=== PATIENT | female | born 1960 | race Caucasian/White ===

== ENCOUNTER 2016-11-22 17:33 | Emergency (ER) | payer SELFPAY ==
--- NOTE | 2016-11-22 20:27 | ER Document Report ---
ED Medical Screen (RME) - General Chief Complaint: Leg Pain Stated Complaint: LEG PAIN Time Seen by Provider: 11/22/16 20:09 Mode of Arrival: Wheelchair Information source: Patient Notes: This is a 55-year-old female with no significant past medical history who presents pain and swelling to the right lower extremity. She states that the symptoms have been present for the past for 5 days. She denies any fevers or chills. She states that the swelling has become so severe that she cannot walk. She does state that she was prescribed "fluid retention pills" sometime last year but that she does not have the financial resources to continue that prescription and she has not taken the medicine in several months. She does not currently have a primary care physician. She denies chest pain or shortness of breath. No history of similar symptoms in the past. No history of blood clots. I have greeted and performed a rapid initial assessment of this patient. A comprehensive ED assessment and evaluation of the patient, analysis of test results and completion of the medical decision making process will be conducted by additional ED providers. TRAVEL OUTSIDE OF THE [place] IN LAST 30 DAYS: No - Related Data Allergies/Adverse Reactions: No Known Allergies Allergy (Verified 04/02/14 11:33) Past Medical History Renal/ Medical History: Denies: Hx Peritoneal Dialysis Past Surgical History: Reports: Hx Section - x3, Hx Tubal Ligation - Immunizations Hx Diphtheria, Pertussis, Tetanus Vaccination: No Physical Exam - General General appearance: Appears well In distress: None - Extremities Notes: RLE is significantly edematous as compared to LLE. Patient has tight pants on and I am unable to roll up her pant leg to examine more that just her foot here in triage. Her right foot is very erythematous and warm to touch, with 3-4+ pitting edema.
[2016-11-22 20:52] LABS: ABSOLUTE BASOPHILS # (AUTO) 0.1 10^3/uL (0.0-0.2); ABSOLUTE EOSINOPHILS # (AUTO) 0.4 10^3/uL (0.0-0.6); ABSOLUTE LYMPHOCYTES (AUTO) 2.8 10^3/uL (0.5-4.7); ABSOLUTE MONOCYTES (AUTO) 1.7 10^3/uL (0.1-1.4); ABSOLUTE NEUT (AUTO) 10.9 10^3/uL (1.7-8.2); BASOPHILS % (AUTO) 0.6 % (0-2); EOSINOPHILS % (AUTO) 2.3 % (0-6); HEMATOCRIT 43.2 % (36.0-47.0); HEMOGLOBIN 14.4 g/dL (12.0-15.5); LYMPHOCYTES % (AUTO) 17.5 % (13-45); MEAN CORPUSCULAR HEMOGLOBIN 34.3 pg (27.0-33.4); MEAN CORPUSCULAR HGB CONC 33.3 g/dL (32.0-36.0); MEAN CORPUSCULAR VOLUME 103 fl (80-97); MONOCYTES % (AUTO) 10.6 % (3-13); RED CELL DISTRIBUTION WIDTH 13.6 % (11.5-14.0); WHITE BLOOD COUNT 15.8 10^3/uL (4.0-10.5)
[2016-11-22 21:09] LABS: ALANINE AMINOTRANSFERASE 22 U/L (9-52); ALBUMIN 3.4 g/dL (3.5-5.0); ALKALINE PHOSPHATASE 206 U/L (38-126); ANION GAP 12 (5-19); ASPARTATE AMINO TRANSFERASE 27 U/L (14-36); BILIRUBIN,DIRECT 0.6 mg/dL (0.0-0.4); BILIRUBIN,TOTAL 1.2 mg/dL (0.2-1.3); BLOOD UREA NITROGEN 14 mg/dL (7-20); CALCIUM 9.3 mg/dL (8.4-10.2); CARBON DIOXIDE 28 mmol/L (22-30); CHLORIDE 100 mmol/L (98-107); CREATININE RESULT 0.61 mg/dL (0.52-1.25); GLUCOSE 101 mg/dL (75-110); SODIUM 140.2 mmol/L (137-145)
--- NOTE | 2016-11-22 22:06 | RADIOLOGY REPORT (SQ) ---
EXAM DESCRIPTION: VENOUS UNILATERAL LOWER COMPLETED DATE/TIME: 11/22/2016 10:00 pm REASON FOR STUDY: RLE swelling, r/o DVT COMPARISON: None. TECHNIQUE: Dynamic and static brown scale and color images acquired of the right leg venous system. S elected spectral images acquired with additional compression and augmentation maneuvers. The contrala teral common femoral vein and saphenofemoral junction were also imaged. Images stored on PACS. LIMITATIONS: None. FINDINGS: COMMON FEMORAL: Normal phasicity, compression and augmentation. No visualized echogenic ma terial on brown scale. No defects on color images. FEMORAL: Normal compression and augmentation. No visualized echogenic material on brown scale. No defe cts on color images. POPLITEAL: Normal compression, augmentation. No visualized echogenic material on brown scale. No defec ts on color images. CALF VESSELS: Normal compression, augmentation. No visualized echogenic material on brown scale. No de fects on color images. GSV and SSV: Normal compression, augmentation. No visualized echogenic material on brown scale. No def ects on color images. ANY DEEP VENOUS INSUFFICIENCY: Not evaluated. ANY EVIDENCE OF POPLITEAL CYST: No. OTHER: No other significant finding. CONTRALATERAL COMMON FEMORAL VEIN AND SAPHENOFEMORAL JUNCTION: Normal phasicity, compression and augmentation. No visualized echogenic material on brown scale. No de fects on color images. IMPRESSION: NO EVIDENCE DVT OR SVT IN THE RIGHT LEG. TECHNICAL DOCUMENTATION: JOB ID: [id number] [employer]- All Rights Reserved
[2016-11-22] MEDS ORDERED: SULFAMETHOXAZOLE/TRIMETHOPRIM 800-160 MG TABLET PO ONE (22:42)
--- NOTE | 2016-11-22 22:50 | ER Document Report ---
ED Extremity Problem, Lower - General Chief Complaint: Leg Pain Stated Complaint: LEG PAIN Time Seen by Provider: 11/22/16 20:09 Mode of Arrival: Wheelchair Notes: The patient is a 55-year-old female, PMHx chronic peripheral edema, who presents with increasing redness over the back of her right leg open sore. She said that she has had several months of right-sided edema and used to take a water pill, but she was unable to afford it. She tried using compression stockings and elevation with some relief of her symptoms. She denies shortness of breath, chest pain, nausea, vomiting, leg injury, back pain or hip pain TRAVEL OUTSIDE OF THE [place] IN LAST 30 DAYS: No - Related Data Allergies/Adverse Reactions: No Known Allergies Allergy (Verified 04/02/14 11:33) Past Medical History - General Information source: Patient - Social History Smoking Status: Unknown if Ever Smoked Family History: Reviewed & Not Pertinent Patient has suicidal ideation: No Patient has homicidal ideation: No Renal/ Medical History: Denies: Hx Peritoneal Dialysis Past Surgical History: Reports: Hx Section - x3, Hx Tubal Ligation - Immunizations Hx Diphtheria, Pertussis, Tetanus Vaccination: No Review of Systems - Review of Systems Notes: REVIEW OF SYSTEMS: CONSTITUTIONAL: -fevers, -chills EENT: -eye pain, -difficulty swallowing, -nasal congestion CARDIOVASCULAR:-chest pain, -syncope. RESPIRATORY: -cough, -SOB GASTROINTESTINAL: -abdominal pain, -nausea, -vomiting, -diarrhea GENITOURINARY: -dysuria, -hematuria MUSCULOSKELETAL: +right leg swelling, -back pain, -neck pain SKIN: +right leg wound HEMATOLOGIC: -easy bruising or bleeding. LYMPHATIC: -swollen, enlarged glands. NEUROLOGICAL: -altered mental status or loss of consciousness, -headache, - neurologic symptoms PSYCHIATRIC: -anxiety, -depression. ALL OTHER SYSTEMS REVIEWED AND NEGATIVE. Physical Exam - Notes Notes: PHYSICAL EXAMINATION: GENERAL: Well-appearing, well-nourished and in no acute distress. HEAD: Atraumatic, normocephalic. EYES: Pupils equal round and reactive to light, extraocular movements intact, sclera anicteric, conjunctiva are normal. ENT: nares patent, oropharynx clear without exudates. Moist mucous membranes. NECK: Normal range of motion, supple without lymphadenopathy LUNGS: Breath sounds clear to auscultation bilaterally and equal. No wheezes rales or rhonchi. HEART: Regular rate and rhythm without murmurs ABDOMEN: Soft, nontender, normoactive bowel sounds. No guarding, no rebound. No masses appreciated. EXTREMITIES: 4+ pitting edema in RLE, strong distal pulses, small open wound on posterior calf with surrounding erythema, normal range of motion. 3+ edema in LLE. No cyanosis. NEUROLOGICAL: Cranial nerves grossly intact. Normal speech, normal gait. Normal sensory and motor exams. PSYCH: Normal mood, normal affect. Course - Re-evaluation Re-evalutation: Pt with chronic peripheral edema and new cellulitis and small wound. No DVT on US. Pt does not have insurance, so will begin Bactrim DS due to being on the $4 list. Given strict return precautions and patient understands. - Laboratory Result Diagrams: 11/22/16 20:40 11/22/16 20:40 Laboratory results interpreted by me: 11/22/16 11/22/16 20:40 20:40 WBC 15.8 H MCV 103 H MCH 34.3 H Absolute Neutrophils 10.9 H Absolute Monocytes 1.7 H Direct Bilirubin 0.6 H Alkaline Phosphatase 206 H Albumin 3.4 L - Diagnostic Test Radiology reviewed: Image reviewed, Reports reviewed Radiology results interpreted by me: MIKO US: No DVT or SVT. Discharge - Discharge Clinical Impression: Cellulitis of leg, right Condition: Stable Disposition: HOME, SELF-CARE Additional Instructions: MRSA CELLULITIS: You have an infection of your skin and underlying soft tissues called cellulitis. This is due to bacteria, which can enter through any break in the skin, or even through an irritated hair follicle. Untreated, cellulitis will usually worsen and may form an abscess which requires draining. Although many bacterial organisms can cause cellulitis and abscess formations, the most likely bacteria is Methicillin-Resistant Staph Aureus, or MRSA for short. Antibiotics are required. Usually, warm packs or warm soaks, and elevation of the infected area are recommended. You should start getting better within 24 to 36 hours. Most infections respond quickly to the right medication. Follow-up care is important, however, to check for abscess (boil) formation, unsuspected foreign body, or resistant infection. If you develop fever, chills, or if the area of infection is becoming rapidly more swollen or painful, call the doctor at once. ANTIBIOTIC THERAPY: You have been given an antibiotic prescription. It's important that you take all the medication, unless instructed otherwise by your physician. Failure to complete the entire course can result in relapse of your condition. Common side effects of antibiotics include nausea, intestinal cramping, or diarrhea. Women may develop vaginal yeast infections, and babies can get yeast (thrush) in the mouth following the use of antibiotics. Contact your physician if you develop significant side effects from this medication. Allergy to this antibiotic can result in hives, wheezing, faintness, or itching. If symptoms of allergy occur, stop the medication and call the doctor. TRIMETHOPRIM-SULFA: You have been given a prescription for trimethoprim-sulfa (TMS, Septra, Bactrim). This is a combination antibiotic of the sulfa class, often used for urinary tract infections, middle ear infections, bronchitis, shigella intestinal infection, and Pneumocystis pneumonia. TMS is usually well-tolerated. Occasional side effects include nausea and decreased appetite. Septra is not recommended for infants less than two months of age. Do not take this medication if you have experienced severe side effects or allergy to sulfa medicine. You should stop this medicine at once and contact your physician if you develop any rash, joint pain, shortness of breath, bruising, or jaundice ( yellow color in the skin), or if you develop any other new or unusual symptoms. ORAL NARCOTIC MEDICATION: You have been given a prescription for pain control. This medication is a narcotic. It's best taken with food, as nausea can result if taken on an empty stomach. Don't operate machinery or drive within six hours of taking this medication. Do not combine this medicine with alcohol, or with any medication which can cause sedation (such as cold tablets or sleeping pills) unless you get permission from the physician. Narcotics tend to cause constipation. If possible, drink plenty of fluids and eat a diet high in fiber and fruits. Please be aware that prescription narcotics also have the potential for abuse. People become addicted to these medications because of the general sense of wellbeing that they induce. This feeling along with a significant reduction in tension, anxiety, and aggression provides a stimulating seductive quality to these drugs. Once your pain is under control, we encourage you to discard your unused narcotics. FOLLOW-UP CARE: If you have been referred to a physician for follow-up care, call the physician s office for an appointment as you were instructed or within the next two days. If you experience worsening or a significant change in your symptoms, notify the physician immediately or return to the Emergency Department at any time for re-evaluation. Prescriptions: Hydrocodone/Acetaminophen [[place] 5-325 mg Tablet] 1 tab PO Q6H PRN #12 tablet PRN Reason: Sulfamethoxazole/Trimethoprim [Bactrim 400-80 mg Tablet] 2 each PO Q12H 10 Days [facility] - Follow up as needed
[2016-11-22] MEDS ORDERED: HYDROCODONE/ACETAMINOPHEN 5-325 MG TABLET PO ONE (22:52)
[2016-11-22] MEDS ORDERED: IBUPROFEN 600 MG TABLET PO ONE (22:52)
[2016-11-22] MEDS ORDERED: HYDROCODONE/ACETAMINOPHEN 5-325 MG 6 TAB/DSPK PO PRN (23:42)
[2016-11-23 01:20] VITALS: BP 133/84
== END 2016-11-23 00:30 | disposition home or self-care (01) ==
LOC: ER 17:33
DX: S81.801A Unspecified open wound, right lower leg, initial encounter (principal); L03.115 Cellulitis of right lower limb; X58.XXXA Exposure to other specified factors, initial encounter; R60.0 Localized edema; T50.996A Underdosing of other drugs, medicaments and biological substances, initial encounter; Z91.120 Patient's intentional underdosing of medication regimen due to financial hardship; Z91.14 Patient's other noncompliance with medication regimen
CPT/HCPCS: 36415; 80053; 85025; 87040; 93971; 99284

== ENCOUNTER 2016-12-19 16:23 | Inpatient (IN) | payer SELFPAY ==
--- NOTE | 2016-12-19 17:06 | ER Document Report ---
ED Medical Screen (RME) - General Chief Complaint: R leg swelling, drainage Stated Complaint: LEG SWELLING Time Seen by Provider: 12/19/16 16:58 Notes: Patient is a 56-year-old female, past medical history chronic peripheral edema, presents with worsening redness and now an open wound on her right posterior calf. She was seen in the emergency room about a month ago and started on Bactrim for cellulitis. She said that her redness improved initially, but is now worse and a open hole is present in her leg. She was unable to follow-up with wound care clinic due to lack of transportation PE: erythema and tenderness over posterior right calf, 3 cm open wound over right posterior calf I have greeted and performed a rapid initial assessment of this patient. A comprehensive ED assessment and evaluation of the patient, analysis of test results and completion of the medical decision making process will be conducted by additional ED providers. TRAVEL OUTSIDE OF THE [place] IN LAST 30 DAYS: No - Related Data Allergies/Adverse Reactions: ampicillin Adverse Reaction (Verified 12/19/16 17:03) Past Medical History Renal/ Medical History: Denies: Hx Peritoneal Dialysis Past Surgical History: Reports: Hx Section - x3, Hx Tubal Ligation - Immunizations Hx Diphtheria, Pertussis, Tetanus Vaccination: No
[2016-12-19] MEDS ORDERED: KETOROLAC TROMETHAMINE INJ/PF 30 MG/1 ML SDV IV ONE (17:14)
[2016-12-19 17:47] LABS: ABSOLUTE BASOPHILS # (AUTO) 0.2 10^3/uL (0.0-0.2); ABSOLUTE EOSINOPHILS # (AUTO) 0.4 10^3/uL (0.0-0.6); ABSOLUTE LYMPHOCYTES (AUTO) 2.2 10^3/uL (0.5-4.7); ABSOLUTE NEUT (AUTO) 3.1 10^3/uL (1.7-8.2); BASOPHILS % (AUTO) 2.3 % (0-2); EOSINOPHILS % (AUTO) 6.3 % (0-6); HEMATOCRIT 38.3 % (36.0-47.0); HEMOGLOBIN 12.7 g/dL (12.0-15.5); HGB HCT DIFFERENCE -0.2; LYMPHOCYTES % (AUTO) 31.3 % (13-45); MEAN CORPUSCULAR HEMOGLOBIN 34.1 pg (27.0-33.4); MEAN CORPUSCULAR HGB CONC 33.1 g/dL (32.0-36.0); MEAN CORPUSCULAR VOLUME 103 fl (80-97); MONOCYTES % (AUTO) 14.8 % (3-13); RED BLOOD COUNT 3.72 10^6/uL (3.72-5.28); SEGMENTED NEUTROPHILS % (AUTO) 45.3 % (42-78); WHITE BLOOD COUNT 6.9 10^3/uL (4.0-10.5)
[2016-12-19] MEDS ORDERED: VANCOMYCIN HCL INJ 1000 MG VIAL IV ONE (17:53)
[2016-12-19] MEDS ORDERED: LEVOFLOXACIN 750 MG TABLET PO ONE (17:54)
[2016-12-19 18:03] LABS: ALANINE AMINOTRANSFERASE 23 U/L (9-52); ALBUMIN 3.2 g/dL (3.5-5.0); ALKALINE PHOSPHATASE 136 U/L (38-126); ANION GAP 12 (5-19); ASPARTATE AMINO TRANSFERASE 33 U/L (14-36); BILIRUBIN,DIRECT 0.3 mg/dL (0.0-0.4); BILIRUBIN,TOTAL 0.8 mg/dL (0.2-1.3); BLOOD UREA NITROGEN 9 mg/dL (7-20); CALCIUM 8.6 mg/dL (8.4-10.2); CARBON DIOXIDE 26 mmol/L (22-30); CHLORIDE 106 mmol/L (98-107); CREATINE KINASE 44 U/L (30-135); GLUCOSE 132 mg/dL (75-110); POTASSIUM 3.3 mmol/L (3.6-5.0); SODIUM 143.5 mmol/L (137-145); TOTAL PROTEIN 7.5 g/dL (6.3-8.2)
--- NOTE | 2016-12-19 18:06 | ER Document Report ---
ED General - General Chief Complaint: Wound Infection Stated Complaint: LEG SWELLING Time Seen by Provider: 12/19/16 16:58 Notes: Presents with increased redness swelling and pain of the left lower extremity, constant, worsening, for about a month but worse for a couple of days and now associated with an open wound. She is not sure how long the wound is been there because she cannot get down that low secondary to immobility issues. She been having chills as well. She was seen a month ago and given Bactrim for cellulitis without did not help. She claims she is not a diabetic but appears to have long-standing leg edema. She does not have transportation and is not currently in primary care. TRAVEL OUTSIDE OF THE [place] IN LAST 30 DAYS: No - Related Data Allergies/Adverse Reactions: ampicillin Adverse Reaction (Verified 12/19/16 17:03) Past Medical History - Social History Smoking Status: Unknown if Ever Smoked Family History: Reviewed & Not Pertinent Renal/ Medical History: Denies: Hx Peritoneal Dialysis Past Surgical History: Reports: Hx Section - x3, Hx Tubal Ligation - Immunizations Hx Diphtheria, Pertussis, Tetanus Vaccination: No Review of Systems - Review of Systems Notes: GEN: Denies fever, chills, weight loss ENT: Denies sore throat, nasal discharge, ear pain EYES: Denies blurry vision, eye pain, discharge CV: Denies chest pain, palpitations, edema RESP: Denies cough, shortness of breath, wheezing GI: Denies abdominal pain, nausea, vomiting, diarrhea MSK: Bilateral leg edema, left leg redness and swelling with wound, SKIN: Denies rash, skin lesions LYMPH: Denies swollen glands/lymph nodes NEURO: Denies headache, focal weakness or numbness, dizziness PSYCH: Denies depression, suicidal or homicidal ideation Physical Exam - Vital signs Vitals: Temp Pulse Resp BP Pulse Ox 98.4 F 110 H 16 142/84 H 100 12/19/16 16:45 12/19/16 16:45 12/19/16 16:45 12/19/16 16:45 12/19/16 16:45 - Notes Notes: General: No acute distress, well-nourished Head: Atraumatic, normocephalic ENT: Mouth normal, oropharynx moist, no exudates or tonsillar enlargement Eyes: Conjunctiva normal, pupils equal, lids normal Neck: No JVD, supple, no guarding CVS: Normal rate, regular rhythm, no murmurs Resp: No resp distress, equal and normal breath sounds bilaterally GI: Nondistended, soft, no tenderness to palpation, no rebound or guarding Ext: There are significant bilateral symmetric chronic leg edema, elephant skin like appearance of legs. Large area of tender erythema on the left posterior leg with a central punched out ulcerative lesion draining pus approximately 3 x 3 cm. This does not probe to bone, but does probe quite deeply. Skin: No rash, warm Lymphatic: No lymphadeopathy noted Neuro: Awake, alert. Face symmetric. Course - Re-evaluation Re-evalutation: 12/19/16 17:57 Acute redness and wound on top of chronic edema concerning for cellulitis. There is purulent drainage from the ulcer but there is no drainable abscess on my exam. Must rule out osteomyelitis. We will get x-rays, cultures, and start the patient on vancomycin and Levaquin for presumed osteomyelitis. Ordered ESR CRP. Will admit to hospitalist. 12/19/16 18:40 Show osteomyelitis. There is no elevated white count. CRP is up. I spoke with Dr. Pérez from surgery will evaluate the patient as an inpatient, and then I admitted the patient [address] [facility] to the night doctor, Dr. Coley. He agreed with the plan as above. - Vital Signs Vital signs: Temp Pulse Resp BP Pulse Ox 98.4 F 110 H 16 142/84 H 100 12/19/16 16:45 12/19/16 16:45 12/19/16 16:45 12/19/16 16:45 12/19/16 17:18 - Laboratory Result Diagrams: 12/19/16 17:25 12/19/16 17:25 Laboratory results interpreted by me: 12/19/16 12/19/16 12/19/16 17:25 17:25 17:25 MCV 103 H MCH 34.1 H Monocytes % 14.8 H Eosinophils % 6.3 H Basophils % 2.3 H ESR 71 H Potassium 3.3 L Glucose 132 H Alkaline Phosphatase 136 H C-Reactive Protein Albumin 3.2 L 12/19/16 17:25 MCV MCH Monocytes % Eosinophils % Basophils % ESR Potassium Glucose Alkaline Phosphatase C-Reactive Protein 19.0 H Albumin - Diagnostic Test Radiology reviewed: Image reviewed, Reports reviewed Discharge - Discharge Admitting Provider: Hospitalist Unit Admitted: Telemetry
--- NOTE | 2016-12-19 18:30 | RADIOLOGY REPORT (SQ) ---
EXAM DESCRIPTION: TIBIA FIBULA RIGHT COMPLETED DATE/TIME: 12/19/2016 6:17 pm REASON FOR STUDY: LEG ULCER r/o OSTEO COMPARISON: None. NUMBER OF VIEWS: Two views. TECHNIQUE: Two radiographic images acquired of the right tibia and fibula to include the knee and an kle in at least one projection. LIMITATIONS: None. FINDINGS: MINERALIZATION: Normal. BONES: No acute fracture or dislocation. No worrisome bone lesions. SOFT TISSUES: Soft tissue ulceration seen along the posterior aspect of the calf. No ulceration is n ot appear to extend to the cortex of bone. There is significant swelling of the soft tissues of the lower extremity. OTHER: No other significant finding. IMPRESSION: No acute fracture, dislocation, or destructive bony lesion identified. Soft tissue ulce ration seen posterior aspect of the distal right lower leg without extension to the cortical surface. TECHNICAL DOCUMENTATION: JOB ID: [id number] [employer]- All Rights Reserved
[2016-12-19] MEDS ORDERED: OXYCODONE HCL IR 5 MG TABLET PO ONE (19:04)
--- NOTE | 2016-12-19 19:16 | RADIOLOGY REPORT (SQ) ---
EXAM DESCRIPTION: CT RT LOWER EXTREMITY WITH COMPLETED DATE/TIME: 12/19/2016 6:59 pm REASON FOR STUDY: Abscess fistula? COMPARISON: None. TECHNIQUE: Axial imaging performed through the right tibia and fibula with reformatted coronal and s agittal imaging windowed for bone and soft tissues. Images saved to PACS. 3D IMAGING: Were 3D images as MIP, SSD, or volume rendering performed at the work station? No. All CT scanners at this facility use dose modulation, iterative reconstruction, and/or weight based d osing when appropriate to reduce radiation dose to as low as reasonably achievable (ALARA). [facility]: Dose Right [facility]: CareDose [facility]: Dose Right [facility]: Teradose 4D [facility]: [employer] LIMITATIONS: None. RADIATION DOSE: Up-to-date CT equipment and radiation dose reduction techniques were employed. CTDIv ol: 4.1 mGy. DLP: 158 mGy-cm. mGy. FINDINGS: SOFT TISSUES: There is significant edema throughout to the subcutaneous soft tissues. No defined fluid collection is seen within the soft tissues to suggest underlying abscess. The defect i s noted in the right posteromedial aspect of the right lower extremity and only extends into the supe rficial soft tissues. There is no evidence of a sinus tract extending down into the deeper musculatu re or to the bony cortex. Numerous calcifications are noted anteriorly in the soft tissues. BONES: No acute fracture. No dislocation. No destructive bony lesions. MINERALIZATION: Normal. OTHER: No other significant finding. IMPRESSION: No acute fracture, dislocation, or destructive bony lesions are identified. Soft tissue ulceration noted along the posteromedial aspect of the right lower leg extent seen into the a superf icial subcutaneous soft tissues. There is significant edema seen within the soft tissues of the righ t lower extremity. The defect is not appear to extend into the deeper musculature or bones. No absc ess is identified within the right lower leg. TECHNICAL DOCUMENTATION: JOB ID: [id number] Quality ID # [id number]: Final reports with documentation of one or more dose reduction techniques (e.g., Au tomated exposure control, adjustment of the mA and/or kV according to patient size, use of iterative reconstruction technique) 2010 [employer]- All Rights Reserved
[2016-12-19] MEDS ORDERED: IPRATROPIUM/ALBUTEROL 0.5-2.5 MG/3 ML AMPUL NEB PRN (19:37)
[2016-12-19] MEDS ORDERED: MAG HYDROX/AL HYDROX/SIMETH SUSP 30 ML UDCUP PO PRN (19:37)
[2016-12-19] MEDS ORDERED: HYDRALAZINE HCL INJ/PF 20 MG/1 ML SDV IV PRN (19:37)
[2016-12-19] MEDS ORDERED: ACETAMINOPHEN 325 MG TABLET PO PRN (19:37)
[2016-12-19] MEDS ORDERED: ZOLPIDEM TARTRATE 5 MG TABLET PO PRN (19:37)
[2016-12-19] MEDS ORDERED: KETOROLAC TROMETHAMINE INJ/PF 30 MG/1 ML SDV IV PRN (19:37)
[2016-12-19] MEDS ORDERED: VANCOMYCIN HCL 0 MG in DEXTROSE 5%-WATER 250 ML IV NR (19:45)
--- NOTE | 2016-12-19 20:55 | PDOC CONSULTATION ---
Consultation Consult Date: 12/19/16 Attending physician:: REMY WRIGHT Consult reason:: Wound right lower extremity associated with cellulitis History of Present Illness Admission Date/PCP: 12/19/16 18:47 Patient complains of: Pain right lower extremity with drainage from wound 1 month duration History of Present Illness: HUBER SAMAYOA is a 56 year old female that presented to the emergency room for the second time in 1 month with, edema, and now erythema and drainage from a wound in her right lower extremity. Denies any trauma to the area but stated approximately a month ago she began to develop "bumps" in her right lower extremity. At the bumps were extremely pruritic. She stated that soon after beginning to scratch the one area on the posterior medial aspect of her right lower extremity she noticed that a small ulcer developed. She did not pay much attention to it until she began to become somewhat painful and she developed a burning sensation in that extremity. She subsequently presented to the emergency room in late October with a superficial ulcer and minimal surrounding erythema. She stated that she was started on an antibiotic, she thinks it was Bactrim, she attempted to elevate her leg by placing heat on the leg when she was supine. That over the course of this month wound has become worse. Approximately 2 days ago she began having a burning sensation in her right lower extremity. She noticed that the area of the erythema had increased substantially from just a few days prior to this event. Positive for fever and chills denied any sweats. She denies a history of trauma or DVT in her lower extremities are late 40s has been suffering from edema in her lower extremities bilaterally. At her primary care physician tells her that she "retains fluid." Denies any history of intermittent claudication states that she only feels a heaviness in the legs when she ambulates. Past Medical History Cardiac Medical History: Reports: Hypertension Pulmonary Medical History: Reports: None EENT Medical History: Reports: None Neurological Medical History: Reports: None Endocrine Medical History: Reports: None Renal/ Medical History: Reports: None Malignancy Medical History: Reports: None GI Medical History: Reports: None Musculoskeltal Medical History: Reports: Arthritis, Other - Peripheral edema lower extremities bilaterally Skin Medical History: Reports: Other - Cellulitis right lower extremity Traumatic Medical History: Reports: None Hematology: Reports: None Infectious Medical History: Reports: Methicillin-Resistant Staph Aureus Past Surgical History Past Surgical History: Reports: Section - x3, Tubal Ligation, Other - section 3 Social History Smoking Status: Former Smoker Cigarettes Packs Per Day: 1.5 Number of Years Smokin Last Time Smoked: In her mid 30s Frequency of Alcohol Use: Rare Hx Recreational Drug Use: No Family History Family History: Reviewed & Not Pertinent Parental Family History Reviewed: Yes - Trauma, pneumonia Children Family History Reviewed: No Sibling(s) Family History Reviewed.: No Medication/Allergy Home Medications: Multivitamin [Daily Multiple Vitamin] 1 tab PO DAILY 12/19/16 [place]-3 Fatty Acids/Fish Oil [Fish Oil 1,000 mg Capsule] 1,000 mg PO DAILY 12/19 Allergies/Adverse Reactions: ampicillin Adverse Reaction (Verified 12/19/16 17:03) Review of Systems Constitutional: PRESENT: weight gain Eyes: ABSENT: as per HPI, visual disturbances, other Ears: ABSENT: as per HPI, hearing changes, other Nose, Mouth, and Throat: ABSENT: as per HPI, headache(s), mouth pain, sore throat, vertigo, other Breasts: ABSENT: as per HPI, other Cardiovascular: ABSENT: chest pain, dyspnea on exertion, edema, orthropnea, palpitations Respiratory: ABSENT: cough, hemoptysis Gastrointestinal: ABSENT: as per HPI, abdominal pain, bloating, coffee ground emesis, constipation, diarrhea, dysphagia, heartburn, hematemesis, hematochezia , melena, nausea, vomiting, other Genitourinary: ABSENT: dysuria, hematuria Musculoskeletal: PRESENT: joint swelling, other - Pain in bilateral lower extremities Integumentary: PRESENT: as per HPI, wounds Neurological: ABSENT: abnormal gait, abnormal speech, confusion, dizziness, focal weakness, syncope Psychiatric: ABSENT: as per HPI, anxiety, depression, hallucinations, homidical ideation, suicidal ideation, other Endocrine: ABSENT: as per HPI, cold intolerance, flushing, heat intolerance, menstrual abnormalities, polydipsia, polyphagia, polyuria, other Hematologic/Lymphatic: ABSENT: as per HPI, easy bleeding, easy bruising, lymphadenopathy, other Allergic/Immunologic: PRESENT: as per HPI Physical Exam Vital Signs: Temp Pulse Resp BP Pulse Ox 98.2 F 110 H 18 140/97 H 97 12/19/16 20:01 12/19/16 16:45 12/19/16 20:01 12/19/16 20:01 12/19/16 20:01 General appearance: PRESENT: no acute distress, cooperative, disheveled, hard of hearing, obese, well-developed Head exam: PRESENT: atraumatic, normocephalic Eye exam: PRESENT: conjunctiva pink, EOMI, PERRLA. ABSENT: scleral icterus Ear exam: PRESENT: normal external ear exam Mouth exam: PRESENT: moist, tongue midline Teeth exam: PRESENT: dental caries, poor dentation Neck exam: ABSENT: carotid bruit, JVD, lymphadenopathy, thyromegaly Respiratory exam: PRESENT: clear to auscultation annetta. ABSENT: rales, rhonchi, wheezes Cardiovascular exam: PRESENT: RRR. ABSENT: diastolic murmur, rubs, systolic murmur Pulses: PRESENT: normal carotid pulses, normal dorsalis pedis pul Vascular exam: PRESENT: normal capillary refill GI/Abdominal exam: PRESENT: normal bowel sounds, soft. ABSENT: distended, guarding, mass, organolmegaly, rebound, tenderness Rectal exam: PRESENT: deferred Extremities exam: PRESENT: pedal edema, other - Positive for 3+ pretibial edema bilaterally distal to the knee. She is positive for symmetrical edema lower extremities bilaterally. Negative for any evidence of lymphadenopathy lower extremities bilaterally. She is negative for Homans sign or Cole sign bilaterally. Positive for a wound posterior medial aspect of the distal right lower extremity surrounding cellulitis extending from just above the foot to the mid calf. Psychiatric exam: PRESENT: flat affect Focused psych exam: PRESENT: pressured speech Skin exam: PRESENT: erythema, other - Open wound with cellulitis right lower extremity as described above Results Impressions: Tibia/Fibula X-Ray 12/19/16 00:00 IMPRESSION: No acute fracture, dislocation, or destructive bony lesion identified. Soft tissue ulceration seen posterior aspect of the distal right lower leg without extension to the cortical surface. Lower Extremity CT 12/19/16 18:36 IMPRESSION: No acute fracture, dislocation, or destructive bony lesions are identified. Soft tissue ulceration noted along the posteromedial aspect of the right lower leg extent seen into the a superficial subcutaneous soft tissues. There is significant edema seen within the soft tissues of the right lower extremity. The defect is not appear to extend into the deeper musculature or bones. No abscess is identified within the right lower leg. Assessment & Plan - Diagnosis (1) Ulcer of lower extremity Qualifiers: Laterality: right Non-pressure ulcer stage: with fat layer exposed Qualified Code(s): L97.912 - Non-pressure chronic ulcer of unspecified part of right lower leg with fat layer exposed Is this a current diagnosis for this admission?: YesPlan: 1. CT scan shows no evidence of abscess or fistulous tract from any etiology extending into the open wound in the right lower extremity series should be widely debrided as there is no evidence of bleeding when the surrounding tissue is manipulated. Serous drainage from the wound that has been cultured by the emergency room physician Gram stain culture and sensitivity is pending. 2. I feel this area should be debrided to healthy viable tissue and a wound VAC be placed over the open wound in an attempt to affect closure 3. Elevate the right lower extremity placed moist heat over the wound following packing with some type of impregnated gauze until this area could be debrided (2) Cellulitis of right anterior lower leg Is this a current diagnosis for this admission?: YesPlan: 1. Agree with antibiotic choice for methicillin resistant staph aureus - Time Time Spent: 50 to 70 Minutes Medications reviewed and adjusted accordingly: Yes Anticipated discharge: Home
[2016-12-19] MEDS: HEPARIN SOD (PORCINE) 5,000 UNIT/ML 1 ML SYRINGE SUBCUT SCH (22:42)
[2016-12-19] MEDS: NORMAL SALINE 1000 ML 1,000 ML IV SCH (22:43)
[2016-12-20] MEDS ORDERED: POTASSIUM CHLORIDE 10 MEQ TABLET.SA PO ONE (02:10)
[2016-12-20] MEDS: VANCOMYCIN HCL 1,000 MG in DEXTROSE 5%-WATER 250 ML IV SCH ×3 (02:39→21:33)
--- NOTE | 2016-12-20 02:39 | PDOC H&P ---
History of Present Illness Admission Date/PCP: 12/19/16 18:47 Patient complains of: Right leg ulcer History of Present Illness: Amirah Jenkins is a 56-year-old female with a past medical history of morbid obesity and lower extremity edema who is had Cellulitis of the posterior aspect of the right lower leg that began approximately a month ago which evolved into an open ulcer with exudate. She was placed on Bactrim without significant improvement prompting to seek evaluation emergency room. She had fever, chills, erythema and pain to the right lower leg. She denies previous episode. She frequently walks barefooted outside. Evaluation of the wound shows a 1 cm ulcer with ragged edges serosanguineous exudate and tunneling approximately 4 cm associated with 10 x 12 cm of superficial erythema. Past Medical History Cardiac Medical History: Reports: Hypertension Pulmonary Medical History: Reports: None EENT Medical History: Reports: None Neurological Medical History: Reports: None Endocrine Medical History: Reports: None Renal/ Medical History: Reports: None Malignancy Medical History: Reports: None GI Medical History: Reports: None Musculoskeltal Medical History: Reports: Arthritis, Other - Peripheral edema lower extremities bilaterally Skin Medical History: Reports: Other - Cellulitis right lower extremity Psychiatric Medical History: Denies: Depression Traumatic Medical History: Reports: None Hematology: Reports: None Infectious Medical History: Reports: Methicillin-Resistant Staph Aureus Past Surgical History Past Surgical History: Reports: Section - x3, Tubal Ligation, Other - section 3 Social History Information Source: Patient Smoking Status: Former Smoker Cigarettes Packs Per Day: 1.5 Number of Years Smokin Last Time Smoked: In her mid 30s Frequency of Alcohol Use: None Hx Recreational Drug Use: No Drugs: None Hx Prescription Drug Abuse: No - Advance Directive Resuscitation Status: Full Code Family History Family History: DM Parental Family History Reviewed: Yes Children Family History Reviewed: Yes Sibling(s) Family History Reviewed.: Yes Medication/Allergy Home Medications: Multivitamin [Daily Multiple Vitamin] 1 tab PO DAILY 12/19/16 [place]-3 Fatty Acids/Fish Oil [Fish Oil 1,000 mg Capsule] 1,000 mg PO DAILY 12/19 Allergies/Adverse Reactions: ampicillin Adverse Reaction (Verified 12/19/16 17:03) Review of Systems Constitutional: ABSENT: chills, fever(s), headache(s), weight gain, weight loss Eyes: ABSENT: visual disturbances Ears: ABSENT: hearing changes Cardiovascular: ABSENT: chest pain, dyspnea on exertion, edema, orthropnea, palpitations Respiratory: ABSENT: cough, hemoptysis Gastrointestinal: ABSENT: abdominal pain, constipation, diarrhea, hematemesis, hematochezia, nausea, vomiting Genitourinary: ABSENT: dysuria, hematuria Musculoskeletal: ABSENT: joint swelling Integumentary: ABSENT: rash, wounds Neurological: ABSENT: abnormal gait, abnormal speech, confusion, dizziness, focal weakness, syncope Psychiatric: ABSENT: anxiety, depression, homidical ideation, suicidal ideation Endocrine: ABSENT: cold intolerance, heat intolerance, polydipsia, polyuria Hematologic/Lymphatic: ABSENT: easy bleeding, easy bruising Physical Exam Vital Signs: Temp Pulse Resp BP Pulse Ox 97.9 F 106 H 17 142/88 H 99 12/19/16 21:45 12/19/16 21:45 12/19/16 21:45 12/19/16 21:45 12/19/16 21:45 Intake & Output 12/18/16 12/19/16 12/20/16 11:59 11:59 11:59 Weight 130 kg General appearance: PRESENT: no acute distress, morbidly obese, well-developed, well-nourished Head exam: PRESENT: atraumatic, normocephalic Eye exam: PRESENT: conjunctiva pink, EOMI, PERRLA. ABSENT: scleral icterus Ear exam: PRESENT: normal external ear exam Mouth exam: PRESENT: moist, tongue midline Neck exam: ABSENT: carotid bruit, JVD, lymphadenopathy, thyromegaly Respiratory exam: PRESENT: clear to auscultation annetta. ABSENT: rales, rhonchi, wheezes Cardiovascular exam: PRESENT: RRR. ABSENT: diastolic murmur, rubs, systolic murmur Pulses: PRESENT: normal dorsalis pedis pul Vascular exam: PRESENT: normal capillary refill GI/Abdominal exam: PRESENT: normal bowel sounds, soft. ABSENT: distended, guarding, mass, organolmegaly, rebound, tenderness Rectal exam: PRESENT: deferred Extremities exam: PRESENT: full ROM, tenderness, other - 1 cm ulcer with ragged edges serosanguineous exudate and tunneling approximately 4 cm associated with 10 x 12 cm of superficial erythema.. ABSENT: calf tenderness, clubbing, pedal edema Neurological exam: PRESENT: alert, awake, oriented to person, oriented to place , oriented to time, oriented to situation, CN II-XII grossly intact. ABSENT: motor sensory deficit Psychiatric exam: PRESENT: appropriate affect, normal mood. ABSENT: homicidal ideation, suicidal ideation Skin exam: PRESENT: dry, erythema, intact, warm, other - 1 cm ulcer with ragged edges serosanguineous exudate and tunneling approximately 4 cm associated with 10 x 12 cm of superficial erythema.. ABSENT: cyanosis, rash Results Impressions: Tibia/Fibula X-Ray 12/19/16 00:00 IMPRESSION: No acute fracture, dislocation, or destructive bony lesion identified. Soft tissue ulceration seen posterior aspect of the distal right lower leg without extension to the cortical surface. Lower Extremity CT 12/19/16 18:36 IMPRESSION: No acute fracture, dislocation, or destructive bony lesions are identified. Soft tissue ulceration noted along the posteromedial aspect of the right lower leg extent seen into the a superficial subcutaneous soft tissues. There is significant edema seen within the soft tissues of the right lower extremity. The defect is not appear to extend into the deeper musculature or bones. No abscess is identified within the right lower leg. Assessment & Plan - Diagnosis (1) Cellulitis of right anterior lower leg Is this a current diagnosis for this admission?: YesPlan: Cellulitis Will obtain blood and wound culture repeat CBC, continue empiric antibiotic coverage for community-acquired MRSA with double coverage and symptomatic management. Surgical consultation pending. (2) Ulcer of lower extremity Qualifiers: Laterality: right Non-pressure ulcer stage: with fat layer exposed Qualified Code(s): L97.912 - Non-pressure chronic ulcer of unspecified part of right lower leg with fat layer exposed Is this a current diagnosis for this admission?: YesPlan: Please see #1 and elevated right lower extremity follow-up surgical consultation - Time Time Spent: 30 to 50 Minutes
[2016-12-20 04:56] LABS: ABSOLUTE BASOPHILS # (AUTO) 0.1 10^3/uL (0.0-0.2); ABSOLUTE EOSINOPHILS # (AUTO) 0.4 10^3/uL (0.0-0.6); ABSOLUTE LYMPHOCYTES (AUTO) 2.5 10^3/uL (0.5-4.7); ABSOLUTE MONOCYTES (AUTO) 1.1 10^3/uL (0.1-1.4); ABSOLUTE NEUT (AUTO) 2.7 10^3/uL (1.7-8.2); BASOPHILS % (AUTO) 0.9 % (0-2); EOSINOPHILS % (AUTO) 5.3 % (0-6); HEMATOCRIT 34.1 % (36.0-47.0); HEMOGLOBIN 11.4 g/dL (12.0-15.5); HGB HCT DIFFERENCE 0.1; LYMPHOCYTES % (AUTO) 37.1 % (13-45); MEAN CORPUSCULAR HEMOGLOBIN 34.7 pg (27.0-33.4); MEAN CORPUSCULAR HGB CONC 33.4 g/dL (32.0-36.0); MEAN CORPUSCULAR VOLUME 104 fl (80-97); MONOCYTES % (AUTO) 16.8 % (3-13); RED BLOOD COUNT 3.29 10^6/uL (3.72-5.28); RED CELL DISTRIBUTION WIDTH 14.1 % (11.5-14.0); SEGMENTED NEUTROPHILS % (AUTO) 39.9 % (42-78); WHITE BLOOD COUNT 6.8 10^3/uL (4.0-10.5)
[2016-12-20 05:22] LABS: ANION GAP 6 (5-19); BLOOD UREA NITROGEN 9 mg/dL (7-20); CALCIUM 7.9 mg/dL (8.4-10.2); CARBON DIOXIDE 25 mmol/L (22-30); CHLORIDE 111 mmol/L (98-107); GLUCOSE 96 mg/dL (75-110); POTASSIUM 3.8 mmol/L (3.6-5.0); SODIUM 142.4 mmol/L (137-145)
[2016-12-20] MEDS: HEPARIN SOD (PORCINE) 5,000 UNIT/ML 1 ML SYRINGE SUBCUT SCH ×3 (05:40→21:33)
[2016-12-20] MEDS: NORMAL SALINE 1000 ML 1,000 ML IV SCH (07:04)
[2016-12-20] MEDS: DOCUSATE SODIUM 100 MG CAPSULE PO SCH ×2 (10:10→19:36)
[2016-12-20] MEDS ORDERED: FAMOTIDINE INJ/PF 20 MG/2 ML SDV IV ONE (16:18)
[2016-12-20] MEDS ORDERED: METOCLOPRAMIDE HCL INJ/PF 10 MG/2 ML SDV ONE (16:18)
--- NOTE | 2016-12-20 16:39 | PROGRESS NOTE E ---
Progress Note NAME: HUBER SAMAYOA : 1960 AGE: 56Y DATE: 12/20/2016 ROOM: 532 CODE STATUS: FULL CODE SUBJECTIVE: The patient is seen earlier today on rounds. The patient is lying in bed. She states that she does feel better today than when she came in. Still complains of pain in her right lower extremity. She denies any nausea or vomiting. No diarrhea, shortness of breath, dizziness, chest pain. No fevers, chills. Patient has been afebrile. Blood pressure has been in a good range and the patient does not voice any other concerns at this time. REVIEW OF SYSTEMS: Rest of review of systems negative. MEDICATIONS: Medications have been reviewed. OBJECTIVE: GENERAL: The patient is a 56-year-old female who is awake, alert, and oriented to person, place, and situation. She is verbal, conversational. Does not appear to be in any acute distress. VITAL SIGNS: As follows: Temperature is 98.0, pulse 78, respirations 18, blood pressure is 148/89. Oxygen saturation 99% on room air. SKIN: Is warm and dry. No rash. Not diaphoretic. HEENT: Pupils equal, round, and reactive to light and accommodation. Conjunctivae pink. No JVP. CARDIOVASCULAR: Heart is regular. There is no murmur or rub. CHEST: Clear, symmetrical, unlabored. ABDOMEN: Soft, nontender, nondistended. BACK: No CVA tenderness, sacral edema. EXTREMITIES: No clubbing, cyanosis. The patient does have chronic lymphedema bilateral lower extremities. Right lower extremity wound is wrapped in Telfa dressing. PSYCHIATRIC: Appropriate affect and pleasant mood. DIAGNOSTICS: Lab values are as follows: Hematology obtained on 12/20/2016: WBCs of 6.8, hemoglobin is 11.4, hematocrit is 34.1, platelet count is 196,000. Chemistry obtained on 12/20/2016: Sodium is 142, potassium chloride is 111, carbon dioxide 25, BUN 9, creatinine is 0.60, glucose 96, A1c is 4.7. Calcium is 7.9. Microbiology: Blood cultures obtained on 12/19/2016 are pending. A wound culture obtained on 12/19/2016, reveals gram-positive cocci in clusters. Lower extremity CT obtained on 12/19/2016, reveals no acute fracture, dislocation, or destruction of bony lesion. Soft tissue ulceration noted along the post-medial aspect of the right lower leg expansing to the superficial subcutaneous soft tissue. There is significant edema within the soft tissue of the right lower extremity. Defect does not appear to extend deeper than the musculature of bone. No abscess is identified within the right lower leg. IMPRESSION AND PLAN: 1. RIGHT LOWER EXTREMITY CELLULITIS AND ULCERATION. The patient is to go to the OR today with surgicalist. Will continue antibiotic coverage, and await culture or sensitivity. 2. HYPERTENSION. BLOOD PRESSURE HAS BEEN IN A DECENT RANGE. Will continue current medications. 3. DEPRESSION. Will continue the patient's home medications. 4. PREVIOUS HISTORY OF MRSA. Will continue coverage with vancomycin for now. 5. DVT PROPHYLAXIS. Will continue subcu heparin. DISPOSITION: The patient is a FULL CODE. Pending patient's symptomatology and diagnostic findings, will re-evaluate in the a.m. TIME SPENT ON THIS FOLLOWUP: Including assessment, plan, physical examination, patient education, and family meeting is 35 minutes. DICTATING PHYSICIAN: EVELIA KONG NP [id number] PHY#: [id number] ID: [id number] JOB#: [id number] ACCT: [id number] cc: > MTDD
[2016-12-20] MEDS ORDERED: MIDAZOLAM 2 MG/2 ML INJ ONE (16:40)
[2016-12-20] MEDS ORDERED: PROPOFOL INJ 200 MG/20 ML VIAL IV ONE (16:40)
[2016-12-20] MEDS ORDERED: MORPHINE SULFATE 10 MG/ML INJ IV PRN (17:19)
[2016-12-20] MEDS ORDERED: PROMETHAZINE HCL INJ 25 MG/1 ML VIAL IV PRN ×2 (17:19)
[2016-12-20] MEDS ORDERED: MEPERIDINE HCL/PF INJ 25 MG/1 ML DISP.SYRIN IV PRN (17:19)
[2016-12-20] MEDS ORDERED: DIPHENHYDRAMINE HCL 50 MG/ML VIAL IV PRN (17:19)
[2016-12-20] MEDS ORDERED: FENTANYL CITRATE INJ/PF 100 MCG/2 ML AMPUL IV PRN ×3 (17:19)
[2016-12-20] MEDS ORDERED: LIDOCAINE 1% INJ-PF (10 MG/ML) 30 ML SDV ONE (17:22)
--- NOTE | 2016-12-20 17:47 | Brief Operative Note ---
BRIEF OPERATIVE REPORT DATE OF SURGERY: 12/20/16 TIME OF SURGERY: 17:10 PREOPERATIVE DIAGNOSIS: Ulcerstage II right lower extremity with cellulitis POSTOPERATIVE DIAGNOSIS: Same SURGEON: NORM GARCIA FINDINGS: Stasis ulcer right lower extremity posterior medial aspect above the lateral malleolus with necrotic purulent debris within the ulcer cavity 3.5 x 2.5 x 2 cm in depth with 1.5 cm of undermining at the 4 o'clock position COMPLICATIONS: None ESTIMATED BLOOD LOSS: 5cc TISSUE REMOVED OR ALTERED: Necrotic debris, skin subcutaneous fat. Tissue for Gram stain culture and sensitivity TECHNICAL PROCEDURE: 12/20/2016 this 56-year-old white female taken to the operating room placed supine position after adequate MAC anesthesia the right lower extremity was prepped with Betadine solution and draped in a sterile fashion. 1% Xylocaine plain was then infiltrated as a field block around the ulcer crater. Following adequate time for that to take effect a scalpel was utilized to excise the surrounding skin enough to admit a finger into the wound cavity. The wound cavity was then probed with the surgeon's finger to identify the amount of undermining and the direction of the undermining. Once this was determined necrotic skin and subcutaneous tissue was then excised to unroofed the wound and a 360 fashion. Once it was completely unroofed utilizing a bone curet the necrotic subcutaneous tissue and wound debris were debrided, the specimen was passed off the operative field and sent to pathology for further evaluation. Following debridement to actively bleeding tissue bleeding was controlled with the electrocautery. Once completely controlled a wound VAC sponge was fashioned and placed within the wound cavity. The remaining wound VAC seals were then placed around the wound and it was connected to -70 cm of water suction. The patient was taken off the operating table placed on a cart and taken recovery area in satisfactory condition. Gross pathology: This morbidly obese 56-year-old white female with what appeared to be lymphedema of the lower extremities bilaterally presented with an open necrotic wound with foul-smelling serous to purulent discharge as described previously. Operative pathology included the wound defect as measured above with necrotic debris from the ulcer in the right lower extremity.
[2016-12-20] MEDS ORDERED: OXYCODONE-ACETAMINOPHEN 5-325 MG TABLET PO PRN (17:51)
[2016-12-20] MEDS ORDERED: FENTANYL CITRATE INJ/PF 100 MCG/2 ML AMPUL ONE (17:52)
[2016-12-20] MEDS: FENTANYL CITRATE INJ/PF 100 MCG/2 ML AMPUL ONE ×2 (17:57→18:11)
[2016-12-20] MEDS: LEVOFLOXACIN 750 MG/D5W RTU 750 MG/150 ML RTUPB IV SCH (19:36)
[2016-12-20 19:42] LABS: CREATININE RESULT 0.55 mg/dL (0.52-1.25)
[2016-12-20] MEDS: KETOROLAC TROMETHAMINE INJ/PF 30 MG/1 ML SDV IV PRN (19:47)
--- NOTE | 2016-12-20 21:21 | EKG REPORT ---
SEVERITY:- BORDERLINE ECG - SINUS RHYTHM BORDERLINE PROLONGED QT INTERVAL : Confirmed by: Clara Tran 20-Dec-2016 21:20:56
[2016-12-20] MEDS: LISINOPRIL 10 MG TABLET PO SCH (21:33)
[2016-12-21] MEDS: VANCOMYCIN HCL 1,000 MG in DEXTROSE 5%-WATER 250 ML IV SCH ×2 (04:02→09:39)
[2016-12-21 05:25] LABS: ABSOLUTE BASOPHILS # (AUTO) 0.1 10^3/uL (0.0-0.2); ABSOLUTE EOSINOPHILS # (AUTO) 0.5 10^3/uL (0.0-0.6); ABSOLUTE LYMPHOCYTES (AUTO) 1.9 10^3/uL (0.5-4.7); ABSOLUTE MONOCYTES (AUTO) 0.8 10^3/uL (0.1-1.4); ABSOLUTE NEUT (AUTO) 2.2 10^3/uL (1.7-8.2); BASOPHILS % (AUTO) 1.6 % (0-2); EOSINOPHILS % (AUTO) 9.9 % (0-6); HEMATOCRIT 34.4 % (36.0-47.0); HEMOGLOBIN 11.4 g/dL (12.0-15.5); HGB HCT DIFFERENCE -0.2; LYMPHOCYTES % (AUTO) 34.6 % (13-45); MEAN CORPUSCULAR HEMOGLOBIN 34.8 pg (27.0-33.4); MEAN CORPUSCULAR HGB CONC 33.3 g/dL (32.0-36.0); MEAN CORPUSCULAR VOLUME 105 fl (80-97); MONOCYTES % (AUTO) 15.1 % (3-13); RED BLOOD COUNT 3.29 10^6/uL (3.72-5.28); RED CELL DISTRIBUTION WIDTH 14.5 % (11.5-14.0); SEGMENTED NEUTROPHILS % (AUTO) 38.8 % (42-78); WHITE BLOOD COUNT 5.6 10^3/uL (4.0-10.5)
[2016-12-21 05:44] LABS: ANION GAP 6 (5-19); BLOOD UREA NITROGEN 9 mg/dL (7-20); CARBON DIOXIDE 25 mmol/L (22-30); CHLORIDE 111 mmol/L (98-107); CREATININE RESULT 0.59 mg/dL (0.52-1.25); GLUCOSE 87 mg/dL (75-110); POTASSIUM 3.8 mmol/L (3.6-5.0); SODIUM 141.9 mmol/L (137-145)
[2016-12-21] MEDS: HEPARIN SOD (PORCINE) 5,000 UNIT/ML 1 ML SYRINGE SUBCUT SCH ×3 (06:21→21:26)
[2016-12-21] MEDS: LISINOPRIL 10 MG TABLET PO SCH ×2 (09:39→21:26)
[2016-12-21] MEDS: DOCUSATE SODIUM 100 MG CAPSULE PO SCH ×2 (09:39→17:48)
--- NOTE | 2016-12-21 09:56 | PROGRESS NOTE E ---
Progress Note NAME: HUBER SAMAYOA : 1960 AGE: 56Y DATE: 12/21/2016 ROOM: 532 SUBJECTIVE: The patient is currently lying in bed. She states that her leg does feel better than yesterday. She went to the OR and currently has a wound VAC in place. The patient denies any nausea, vomiting, diarrhea. No shortness of breath, dizziness, chest pain. No fevers or chills. Patient has been afebrile. Blood pressure has been in a good range. The patient does want to arrange Home Health to help with the wound VAC and does not voice any other concerns at this time. REVIEW OF SYSTEMS: The rest of the review of systems is negative. MEDICATIONS: Medications have been reviewed. OBJECTIVE: GENERAL: The patient is a 56-year-old female who is awake, alert, and oriented to person, place, time, and situation. She is verbal and conversational. She does not appear to be in any acute distress. VITAL SIGNS: Temperature is 97.8, pulse 91, respirations 19, blood pressure is 130/96, and oxygen saturation is 99% on room air. SKIN: Warm and dry. There is no rash and she is not diaphoretic. HEENT: Pupils equal, round and reactive to light and accommodation. Conjunctivae pink. No JVP. CARDIOVASCULAR: Heart is regular, is no murmur or rub. CHEST: Clear, symmetrical, unlabored. ABDOMEN: Soft, nontender, nondistended. BACK: No CVA tenderness or sacral edema. EXTREMITIES: No clubbing or cyanosis. The patient does have chronic lymphedema in bilateral lower extremities. Left lower extremity does have wound VAC in place. Redness has receded from previous outline. PSYCHIATRIC: Appropriate affect, pleasant mood. DIAGNOSTICS: Lab values are as follows. Hematology obtained on 12/21/2016: WBCs are 5.6, hemoglobin is 11.4, hematocrit is 34.9, and platelet count is 179,000. Chemistry obtained on 12/21/2016: Sodium is 141, potassium 3.8, chloride 111, carbon dioxide 25, BUN 9, creatinine is 0.59, glucose 87, calcium is 8. Microbiology: Blood cultures obtained on 12/19/2016 revealed no growth. Wound culture obtained on 12/19/2016 reveals Gram-positive cocci. Wound culture obtained on 12/20/2016 is pending. IMPRESSION AND PLAN: 1. RIGHT LOWER EXTREMITY CELLULITIS AND ULCERATION. The patient is status post operative repair with the surgicalist. Will continue antibiotic coverage and await cultures and sensitivity. The patient does have a wound VAC in place and Surgery wants her discharged to home with this. 2. HYPERTENSION. Blood pressures have been in a much improved range. Will continue current medication dosages. 3. DEPRESSION. Will continue home medication. 4. PREVIOUS HISTORY OF MRSA. Will continue vancomycin for now. 5. DVT PROPHYLAXIS. Will continue subcutaneous heparin. DISPOSITION: THE PATIENT IS A FULL CODE. Pending the patient's symptomatology and diagnostic findings, will re-evaluate in the a.m. Time spent on this followup, including assessment/plan, physical examination, and patient education, is 20 minutes. DICTATING PHYSICIAN: EVELIA KONG NP [id number] PHY#: [id number] ID: [id number] JOB#: [id number] ACCT: [id number] cc: >
--- NOTE | 2016-12-21 09:57 | PDOC PROGRESS REPORT ---
Subjective Progress Note for:: 12/21/16 Subjective:: No complaints Physical Exam Vital Signs: Temp Pulse Resp BP Pulse Ox 97.8 F 91 19 130/96 H 99 12/21/16 08:00 12/21/16 08:00 12/21/16 08:00 12/21/16 08:00 12/21/16 08:00 Intake & Output 12/20/16 12/21/16 12/22/16 06:59 06:59 06:59 Intake Total 240 1735 0 Output Total 600 2610 Balance -360 -875 0 Weight 130 kg 130 kg Extremities exam: PRESENT: other - Bilateral lower extremity diffuse edema. Right posterior lower leg wound with wound VAC. Mild surrounding erythema. Results Laboratory Results: 12/21/16 04:39 12/21/16 04:39 12/20/16 12/21/16 12/21/16 19:15 04:39 04:39 WBC 5.6 RBC 3.29 L Hgb 11.4 L Hct 34.4 L MCV 105 H MCH 34.8 H MCHC 33.3 RDW 14.5 H Plt Count 179 Seg Neutrophils % 38.8 L Lymphocytes % 34.6 Monocytes % 15.1 H Eosinophils % 9.9 H Basophils % 1.6 Absolute Neutrophils 2.2 Absolute Lymphocytes 1.9 Absolute Monocytes 0.8 Absolute Eosinophils 0.5 Absolute Basophils 0.1 Sodium 141.9 Potassium 3.8 Chloride 111 H Carbon Dioxide 25 Anion Gap 6 BUN 9 Creatinine 0.55 0.59 Est GFR ( Amer) > 60 > 60 Est GFR (Non-Af Amer) > 60 > 60 Glucose 87 Calcium 8.0 L Impressions: Tibia/Fibula X-Ray 12/19/16 00:00 IMPRESSION: No acute fracture, dislocation, or destructive bony lesion identified. Soft tissue ulceration seen posterior aspect of the distal right lower leg without extension to the cortical surface. Lower Extremity CT 12/19/16 18:36 IMPRESSION: No acute fracture, dislocation, or destructive bony lesions are identified. Soft tissue ulceration noted along the posteromedial aspect of the right lower leg extent seen into the a superficial subcutaneous soft tissues. There is significant edema seen within the soft tissues of the right lower extremity. The defect is not appear to extend into the deeper musculature or bones. No abscess is identified within the right lower leg. Assessment & Plan - Diagnosis (1) Ulcer of lower extremity Qualifiers: Laterality: right Non-pressure ulcer stage: with fat layer exposed Qualified Code(s): L97.912 - Non-pressure chronic ulcer of unspecified part of right lower leg with fat layer exposed Is this a current diagnosis for this admission?: YesPlan: Related with venous stasis. Status post debridement. Continue wound VAC. Will need to keep her legs more elevated.
[2016-12-21] MEDS ORDERED: (PENDING PHARMACY ID) (Omega-3 Fatty Acids/Fish Oil [Fish Oil 1,000 Mg Capsule] 1,000 MG) PO SCH (10:00)
[2016-12-21] MEDS: MULTIVITAMIN TABLET PO SCH (10:19)
[2016-12-21] MEDS: OMEGA-3 ACID ETHYL ESTERS 1 GM CAPSULE PO SCH (13:27)
[2016-12-21] MEDS ORDERED: ZOLPIDEM TARTRATE 5 MG TABLET PO PRN (14:15)
[2016-12-21] MEDS ORDERED: MAG HYDROX/AL HYDROX/SIMETH SUSP 30 ML UDCUP PO PRN (14:18)
[2016-12-21] MEDS ORDERED: ACETAMINOPHEN 325 MG TABLET PO PRN (14:20)
[2016-12-21] MEDS: LEVOFLOXACIN 750 MG/D5W RTU 750 MG/150 ML RTUPB IV SCH (17:48)
[2016-12-21] MEDS: VANCOMYCIN HCL 1,500 MG in DEXTROSE 5%-WATER 250 ML IV SCH (18:50)
[2016-12-22] MEDS: VANCOMYCIN HCL 1,500 MG in DEXTROSE 5%-WATER 250 ML IV SCH ×3 (01:41→18:46)
[2016-12-22] MEDS: HEPARIN SOD (PORCINE) 5,000 UNIT/ML 1 ML SYRINGE SUBCUT SCH ×3 (05:42→21:25)
[2016-12-22 06:09] LABS: ABSOLUTE BASOPHILS # (AUTO) 0.1 10^3/uL (0.0-0.2); ABSOLUTE EOSINOPHILS # (AUTO) 0.7 10^3/uL (0.0-0.6); ABSOLUTE LYMPHOCYTES (AUTO) 2.4 10^3/uL (0.5-4.7); ABSOLUTE MONOCYTES (AUTO) 0.9 10^3/uL (0.1-1.4); ABSOLUTE NEUT (AUTO) 2.6 10^3/uL (1.7-8.2); BASOPHILS % (AUTO) 1.1 % (0-2); EOSINOPHILS % (AUTO) 9.8 % (0-6); HEMATOCRIT 36.3 % (36.0-47.0); HEMOGLOBIN 12.2 g/dL (12.0-15.5); HGB HCT DIFFERENCE 0.3; LYMPHOCYTES % (AUTO) 36.8 % (13-45); MEAN CORPUSCULAR HEMOGLOBIN 34.7 pg (27.0-33.4); MEAN CORPUSCULAR HGB CONC 33.8 g/dL (32.0-36.0); MEAN CORPUSCULAR VOLUME 103 fl (80-97); MONOCYTES % (AUTO) 13.8 % (3-13); RED BLOOD COUNT 3.52 10^6/uL (3.72-5.28); RED CELL DISTRIBUTION WIDTH 14.4 % (11.5-14.0); SEGMENTED NEUTROPHILS % (AUTO) 38.5 % (42-78); WHITE BLOOD COUNT 6.6 10^3/uL (4.0-10.5)
[2016-12-22 06:27] LABS: ANION GAP 7 (5-19); BLOOD UREA NITROGEN 9 mg/dL (7-20); CALCIUM 8.2 mg/dL (8.4-10.2); CARBON DIOXIDE 26 mmol/L (22-30); CHLORIDE 111 mmol/L (98-107); CREATININE RESULT 0.62 mg/dL (0.52-1.25); GLUCOSE 85 mg/dL (75-110); POTASSIUM 3.6 mmol/L (3.6-5.0)
[2016-12-22] MEDS: MULTIVITAMIN TABLET PO SCH (10:13)
[2016-12-22] MEDS: LISINOPRIL 10 MG TABLET PO SCH ×2 (10:14→21:25)
[2016-12-22] MEDS: DOCUSATE SODIUM 100 MG CAPSULE PO SCH ×2 (10:14→17:46)
[2016-12-22] MEDS: OMEGA-3 ACID ETHYL ESTERS 1 GM CAPSULE PO SCH (12:21)
--- NOTE | 2016-12-22 13:19 | PROGRESS NOTE E ---
Progress Note NAME: HUBER SAMAYOA : 1960 AGE: 56Y DATE: 12/22/2016 ROOM: 532 SUBJECTIVE: The patient is lying in bed. She states that she feels a little better today. The pain has improved in her leg. The patient denies any nausea, vomiting, diarrhea. No shortness of breath, dizziness, chest pain. No fevers or chills. The patient has been afebrile. Her blood pressures have been in a good range. The patient does not voice any other concerns at this time. REVIEW OF SYSTEMS: The rest of the review of systems is negative. MEDICATIONS: Medications have been reviewed. OBJECTIVE: GENERAL: The patient is a 56-year-old female who is awake, alert, and oriented to person, place, time, and situation. She is verbal, conversational, ambulatory. She does not appear to be in any acute distress. VITAL SIGNS: Temperature is 98.0, pulse 89, respirations 19, blood pressure 137/84, and oxygen saturation is 99% on room air. SKIN: Warm and dry. There is no rash and she is not diaphoretic. HEENT: Pupils equal, round and reactive to light and accommodation. Conjunctivae pink. No JVP. CARDIOVASCULAR: Heart is regular, is no murmur or rub. CHEST: Clear, symmetrical, unlabored. ABDOMEN: Soft, nontender, nondistended. BACK: No CVA tenderness or sacral edema. EXTREMITIES: No clubbing, cyanosis, edema. PSYCHIATRIC: Appropriate affect. Pleasant mood. DIAGNOSTICS: Lab values are as follows. Hematology obtained on 12/22/2016: WBCs are 6.6, hemoglobin is 12.2, hematocrit is 36.3, and platelet count is 208,000. Chemistry obtained on 12/22/2016: Sodium is 144, potassium 3.6, chloride is 111, carbon dioxide is 26, BUN 9, creatinine 0.62, glucose 85, calcium is 8.2. IMPRESSION AND PLAN: 1. RIGHT LOWER EXTREMITY CELLULITIS WITH ULCERATION. Patient is status post operative repair day 2. Do appreciate surgicalist input on this. Will continue antibiotic coverage as this does appear to be MRSA. Leave wound VAC in place. This is going to be an issue given the patient is uninsured. 2. MRSA INFECTION. Continue vancomycin. 3. HYPERTENSION. Blood pressures are overall much improved. Continue current doses. 4. DEPRESSION. Will continue home medication. 5. DVT PROPHYLAXIS. Will continue subcutaneous heparin. DISPOSITION: THE PATIENT IS A FULL CODE. Pending the patient's symptomatology and diagnostic findings, will re-evaluate in the a.m. Time spent on this followup, including assessment/plan, physical examination and patient education, is 20 minutes. DICTATING PHYSICIAN: EVELIA KONG NP [id number] PHY#: [id number] ID: [id number] JOB#: [id number] ACCT: [id number] cc: >
[2016-12-22] MEDS: LEVOFLOXACIN 750 MG/D5W RTU 750 MG/150 ML RTUPB IV SCH (17:47)
[2016-12-22] MEDS: OXYCODONE-ACETAMINOPHEN 5-325 MG TABLET PO PRN (21:32)
[2016-12-23] MEDS: VANCOMYCIN HCL 1,500 MG in DEXTROSE 5%-WATER 250 ML IV SCH ×2 (02:06→10:44)
[2016-12-23] MEDS: HEPARIN SOD (PORCINE) 5,000 UNIT/ML 1 ML SYRINGE SUBCUT SCH ×3 (05:26→21:32)
--- NOTE | 2016-12-23 08:48 | PROGRESS NOTE E ---
Progress Note NAME: HUBER SAMAYOA : 1960 AGE: 56Y DATE: 12/23/2016 ROOM: 532 SUBJECTIVE: The patient is currently lying in bed. She states that she feels okay today. Intermittent pain in the leg, but overall much improved. Patient denies any nausea, vomiting, diarrhea. No shortness of breath, dizziness, chest pain. No fevers, chills. Patient has been afebrile. Blood pressure has been in a good range. The patient does not voice any other concerns at this time. REVIEW OF SYSTEMS: Rest of review of systems negative. MEDICATIONS: Medications have been reviewed. OBJECTIVE: GENERAL: The patient is a 56-year-old female who is awake, alert, and oriented to person, place, time, and situation. She is verbal, conversational, does not appear to be in any acute distress. VITAL SIGNS: Temperature is 98.5, pulse 88, respirations 19, blood pressure is 117/76, oxygen saturation is 97% on room air. SKIN: Warm and dry. No rash. She is not diaphoretic. HEENT: Pupils equal, round, and reactive to light and accommodation. Conjunctivae pink. No JVP. CARDIOVASCULAR SYSTEM: Heart is regular. There is no murmur or rub. CHEST: Clear, symmetrical, and labored. ABDOMEN: Soft, nontender, nondistended. BACK: No CVA tenderness or sacral edema. EXTREMITIES: No clubbing, cyanosis. Patient does have chronic lymphedema. Ulceration of right lower extremity overall does appear improved. Wound VAC is in place. Redness is receding. DIAGNOSTICS: Lab values are as follows: Hematology obtained on 12/22/2016: WBCs are 6.6, hemoglobin is 12.2, hematocrit is 36.3, platelet count is 208,000. Chemistry obtained on 12/22/2016: Sodium is 140, potassium is 3.6, chloride is 111, carbon dioxide 26, BUN 9, creatinine is 0.62, glucose 85, calcium is 8.2. Microbiology: Wound culture obtained on 12/20/2016 reveals MRSA. IMPRESSION AND PLAN: 1. LOWER EXTREMITY CELLULITIS WITH ULCERATION OF METHICILLIN-RESISTANT STAPHYLOCOCCUS AUREUS. THIS IS POSTOPERATIVE REPAIR DAY NUMBER 3 FROM DEBRIDEMENT. Do appreciate surgicalist's input with this. Will continue vancomycin for now. The patient will be discharged with wound VAC most likely. Do not feel the patient will require home IV antibiotics; however, will discuss the case with Surgery and follow. 2. HYPERTENSION. Blood pressures are much improved. Will continue current doses. 3. DEPRESSION. Will continue home medication. 4. DVT PROPHYLAXIS. Will continue subcu heparin. DISPOSITION: The patient is a FULL CODE. Pending patient's symptomatology and diagnostic findings, will re-evaluate in the a.m. Time spent on this followup including assessment, plan, physical examination, patient education, and resource alignment is 20 minutes. DICTATING PHYSICIAN: EVELIA KONG NP [id number] PHY#: [id number] ID: [id number] JOB#: [id number] ACCT: [id number] cc: > MTDD
[2016-12-23] MEDS: DOCUSATE SODIUM 100 MG CAPSULE PO SCH ×2 (10:43→18:37)
[2016-12-23] MEDS: LISINOPRIL 10 MG TABLET PO SCH ×2 (10:43→21:33)
[2016-12-23] MEDS: MULTIVITAMIN TABLET PO SCH (10:43)
[2016-12-23 10:55] LABS: CREATININE RESULT 0.59 mg/dL (0.52-1.25)
[2016-12-23] MEDS: OMEGA-3 ACID ETHYL ESTERS 1 GM CAPSULE PO SCH (11:38)
[2016-12-23] MEDS: OXYCODONE-ACETAMINOPHEN 5-325 MG TABLET PO PRN (12:52)
--- NOTE | 2016-12-23 13:35 | PROGRESS NOTE E ---
Progress Note NAME: HUBER SAMAYOA : 1960 AGE: 56Y DATE: 12/23/2016 ROOM: 532 SUBJECTIVE: I checked the wound on the right above ankle. The VAC was just removed. The wound itself is nice and clean and with fairly good granulation tissue. However, there is still a lot of induration around the wound. She would need a wound VAC change every 3 days for now and keep her leg elevated above the heart most of the time. I told the patient about this and she seems to be agreeable. Meantime, continue her on IV antibiotics. I believe arrangements are being made for her to have insurance coverage for all these procedures and antibiotic therapy. She can be followed up at the wound care center on discharge with a change of VAC every 3 days initially and may increase it to once a week when the swelling and inflammation has subsided. DICTATING PHYSICIAN: DORIAN BUNN M.D. [id number] PHY#: [id number] ID: [id number] JOB#: [id number] ACCT: [id number] cc: >
[2016-12-24] MEDS: VANCOMYCIN HCL 1,500 MG in DEXTROSE 5%-WATER 250 ML IV SCH ×2 (05:36→17:48)
[2016-12-24] MEDS: HEPARIN SOD (PORCINE) 5,000 UNIT/ML 1 ML SYRINGE SUBCUT SCH ×3 (05:36→21:28)
[2016-12-24] MEDS: KETOROLAC TROMETHAMINE INJ/PF 30 MG/1 ML SDV IV PRN (05:37)
[2016-12-24 09:43] LABS: PROTHROMBIN TIME 13.8 SEC (11.4-15.4)
[2016-12-24] MEDS: LISINOPRIL 10 MG TABLET PO SCH ×2 (10:00→21:28)
[2016-12-24] MEDS: MULTIVITAMIN TABLET PO SCH (10:00)
[2016-12-24] MEDS: DOCUSATE SODIUM 100 MG CAPSULE PO SCH ×2 (10:00→17:49)
[2016-12-24] MEDS: OMEGA-3 ACID ETHYL ESTERS 1 GM CAPSULE PO SCH (12:16)
[2016-12-25] MEDS: HEPARIN SOD (PORCINE) 5,000 UNIT/ML 1 ML SYRINGE SUBCUT SCH ×3 (05:38→21:46)
[2016-12-25] MEDS: VANCOMYCIN HCL 1,500 MG in DEXTROSE 5%-WATER 250 ML IV SCH (05:38)
[2016-12-25 07:17] LABS: HEMATOCRIT 36.1 % (36.0-47.0); HEMOGLOBIN 11.7 g/dL (12.0-15.5); MEAN CORPUSCULAR HEMOGLOBIN 33.8 pg (27.0-33.4); MEAN CORPUSCULAR HGB CONC 32.5 g/dL (32.0-36.0); MEAN CORPUSCULAR VOLUME 104 fl (80-97); RED BLOOD COUNT 3.47 10^6/uL (3.72-5.28); RED CELL DISTRIBUTION WIDTH 14.7 % (11.5-14.0); WHITE BLOOD COUNT 6.1 10^3/uL (4.0-10.5)
[2016-12-25 07:42] LABS: ANION GAP 7 (5-19); BLOOD UREA NITROGEN 16 mg/dL (7-20); CALCIUM 8.3 mg/dL (8.4-10.2); CARBON DIOXIDE 26 mmol/L (22-30); CHLORIDE 107 mmol/L (98-107); CREATININE RESULT 0.63 mg/dL (0.52-1.25); GLUCOSE 80 mg/dL (75-110); MAGNESIUM 1.7 mg/dL (1.6-2.3); POTASSIUM 3.9 mmol/L (3.6-5.0); SODIUM 139.7 mmol/L (137-145)
--- NOTE | 2016-12-25 08:55 | PROGRESS NOTE E ---
Progress Note NAME: HUBER SAMAYOA : 1960 AGE: 56Y DATE: 12/25/2016 ROOM: 532 SUBJECTIVE: The patient is currently lying in bed. She states she feels a little better than yesterday. Still having no pain in her leg. She denies any nausea, vomiting, diarrhea. No shortness of breath, dizziness, chest pain. No fevers, chills. Patient has been afebrile. Her blood pressures have been in a good range and the patient does not voice any other concerns at this time. BRIEF HISTORY: The patient is a 56-year-old female with a past medical history of MRSA. The patient presented to the emergency department with an ulceration of the right lower extremity. The patient was admitted and started on Levaquin, vancomycin, and went to the OR on 12/20/2016 for area debridement and has been sent out with a wound VAC. The patient was continued on vancomycin as her cultures came back positive for vancomycin and Peptostreptococcus. I called and discussed the case with Infectious Disease at [facility]. I spoke with fellow Dr. Castañeda and recommendations have been made for 14 days of oral antibiotic of doxycycline and Amoxil, given that the patient does not have any evidence of an osteomyelitis. Infectious Disease does not feel that IV antibiotics are warranted for this wound. REVIEW OF SYSTEMS: Rest of review of systems negative. MEDICATIONS: Medications have been reviewed. OBJECTIVE: GENERAL: The patient is a 56-year-old female who is awake, alert, and oriented to person, place, time, and situation. She is verbal, conversational, ambulatory, and does not appear to be in any acute distress. VITAL SIGNS: Temperature is 97.8, pulse 69, respirations 18, blood pressure is 102/73, oxygen saturation is 99% on room air. SKIN: Warm and dry. No rash. She is not diaphoretic. HEENT: Pupils equal, round, and reactive to light and accommodation. Conjunctivae are pink. NECK: No JVP. CARDIOVASCULAR: Heart is regular. There is no murmur or rub. CHEST: Clear, symmetrical, and unlabored. ABDOMEN: Soft, nontender, nondistended. BACK: No CVA tenderness or sacral edema. EXTREMITIES: No clubbing, cyanosis, or edema. Right lower extremity does have a wound VAC in place. Redness has receded from the original markings. PSYCHIATRIC: Appropriate affect, pleasant mood. DIAGNOSTICS: Lab values are as follows: Hematology obtained on 12/25/2016: WBCs are 6.1, hemoglobin is 11.7, hematocrit is 36.1, platelet count is 185,000. Chemistry obtained on 12/25/2016: Sodium is 139, potassium is 3.9, chloride is 107, carbon dioxide 26, BUN 16, creatinine is 0.63, glucose 80, calcium is 8.3, magnesium is 1.7. MICROBIOLOGY: Wound culture obtained on 12/20/2016 reveals MRSA and Peptostreptococcus. IMPRESSION AND PLAN: 1. 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 Surgery recommends continuing wound VAC. Social work is working on this. I have discussed the case with Infectious Disease and recommendations have been made for doxycycline, as well as a penicillin, however, the patient has been unable to tolerate penicillin, therefore, will cover with a cephalosporin and follow. 2. HYPERTENSION. Blood pressures are on the lower end of normal. Will decrease her EBENEZER inhibitor and follow. 4. DEEP VENOUS THROMBOSIS PROPHYLAXIS. Will continue subcutaneous heparin. DISPOSITION: The patient is a FULL CODE. Pending patient's symptomatology and diagnostic findings, the patient can be discharged whenever social work has arrangements for the patient's wound care followup, wound VAC, and medication,s given the patient's uninsured state. Time spent on this followup including assessment, plan, physical examination, patient education, and consultation with specialty is 35 minutes. DICTATING PHYSICIAN: EVELIA KONG NP [id number] PHY#: [id number] ID: [id number] JOB#: [id number] ACCT: [id number] cc: >
[2016-12-25] MEDS: LISINOPRIL 10 MG TABLET PO SCH ×2 (09:09→21:47)
[2016-12-25] MEDS: MULTIVITAMIN TABLET PO SCH (09:29)
[2016-12-25] MEDS: DOCUSATE SODIUM 100 MG CAPSULE PO SCH ×2 (09:29→17:36)
[2016-12-25] MEDS: DOXYCYCLINE HYCLATE 100 MG TABLET PO SCH ×2 (09:29→21:46)
[2016-12-25] MEDS: CEPHALEXIN 500 MG CAPSULE PO SCH ×3 (12:08→23:12)
[2016-12-25] MEDS: OMEGA-3 ACID ETHYL ESTERS 1 GM CAPSULE PO SCH (12:11)
--- NOTE | 2016-12-25 16:48 | DISCHARGE SUMMARY E ---
Discharge Summary NAME: HUBER SAMAYOA : 1960 AGE: 56Y ADMITTED: 12/19/2016 DISCHARGED: 12/26/2016 CODE STATUS: FULL CODE. CONSULTING SURGICALIST: Dr. Elkins. DISCHARGE DIAGNOSES: Include: 1. Methicillin-resistant Staphylococcus aureus and Peptostreptococcus cellulitis and ulceration status post debridement. 2. Hypertension. DISCHARGE MEDICATIONS: Include: 1. Keflex 500 mg p.o. q.6 h. 52 tablets 0 refills. 2. Doxycycline 100 mg q.12 h. 26 tablets 0 refills. 3. Motrin 600 mg p.o. q.8 h. p.r.n. 14 tablets 0 refills. 4. Lisinopril 10 mg p.o. daily 30 tablets 0 refills. 5. Multivitamin 1 tablet p.o. daily. 6. Fish oil 1000 mg p.o. daily. DIET: As tolerated. ACTIVITY: As tolerated. Please keep right leg elevated when at rest. HISTORY OF PRESENT ILLNESS: The patient is a 56-year-old female with a past medical history of morbid obesity and chronic lower extremity edema. The patient presented to the emergency department with a chief complaint of pain of her right lower extremity. The patient stated that she had had this right leg ulceration and subsequent cellulitis in the posterior aspect of her right lower leg for approximately 1 month. This has evolved until it developed an open ulcer with exudate. The patient was seen outpatient, was placed on Bactrim without significant improvement of her symptoms and subsequently came back to the emergency department. The patient stated that she had had fever, chills, erythema, and denied any previous episode of this. The patient denies any other complaints. However, given the patient had failed outpatient management, she was referred to the hospitalist for admission and management. HOSPITAL COURSE: The patient was admitted to continuous telemetry unit. The patient, given her history of MRSA, was placed on vancomycin as well as Levaquin. The patient had significant improvement of her cellulitis and on 12/20/2016 went to OR for debridement. The patient did have a wound VAC placed, and surgery recommends for the patient to be discharged with this, for her to follow up with the outpatient [facility]. This has been arranged with social work. I called and discussed the case with [facility] given her polymicrobial wound, and recommendations were made to discharge the patient on penicillin as well as doxycycline for 14 days. I did not feel the need for IV antibiotics given that the patient did not appear to have any involvement of the bone. I discussed this with surgery, and the patient is ready for discharge. DIAGNOSTICS: Lab values are as follows: Hematology obtained on 12/25/2016; WBCs are 6.1, hemoglobin is 12.7, hematocrit is 36.1, platelet count is 185,000. Coagulation obtained on 12/24/2016: PT is 13.8, INR is 0.99. Chemistry obtained on 12/25/2016: Sodium is 139, potassium 3.9, chloride is 107, carbon dioxide 26, BUN 16, creatinine is 0.68, glucose 80, calcium is 8.3, magnesium is 1.7. Microbiology: Wound culture obtained on 12/20/2016 reveals MRSA and Peptostreptococcus. Blood cultures obtained reveal no growth. PHYSICAL EXAMINATION: GENERAL: On examination the patient is a well-developed, well-nourished, 56-year-old female who is awake, alert and oriented to person, place, time, and situation. She is verbal, conversational, does not appear to be in any acute distress. VITAL SIGNS: As follows: Temperature is 97.8, pulse 69, respirations 18, blood pressure is 102/73, oxygen saturation is 99% on room air. SKIN: Warm and dry. No rash. Not diaphoretic. HEENT: Pupils equal, round, reactive to light and accommodation. Conjunctiva is pink. NECK: There is no JVP. CARDIOVASCULAR SYSTEM: Heart is regular. There is no murmur or rub. CHEST: Clear, symmetrical, unlabored. ABDOMEN: Soft, nontender, nondistended. BACK: No CVA tenderness or sacral edema. EXTREMITIES: No clubbing, cyanosis, edema. PSYCHIATRIC: Appropriate affect. Pleasant mood. DISCHARGE PLAN: The patient will follow up with [facility] on Sunday as scheduled. Time spent on this discharge including assessment, plan, physical examination, patient education, resource alignment, and two separate visits is 35 minutes. DICTATING PHYSICIAN: EVELIA KONG NP [id number] PHY#: [id number] ID: [id number] JOB#: [id number] ACCT: [id number] cc:CAITLYN SKINNER M.D. > MTDD
[2016-12-25] MEDS: OXYCODONE-ACETAMINOPHEN 5-325 MG TABLET PO PRN (21:46)
[2016-12-26] MEDS: CEPHALEXIN 500 MG CAPSULE PO SCH (05:36)
[2016-12-26] MEDS: HEPARIN SOD (PORCINE) 5,000 UNIT/ML 1 ML SYRINGE SUBCUT SCH (05:36)
[2016-12-26] MEDS: OXYCODONE-ACETAMINOPHEN 5-325 MG TABLET PO PRN (05:36)
[2016-12-26 08:13] VITALS: BP 125/90
== END 2016-12-26 09:15 | disposition home health service (06) | DRG 264 ==
LOC: ER 16:23 → UNDOADMIN 18:47 → EH 18:47 → 5 21:43
PROVIDERS: ADMIT Family Medicine; ATTEND Family Medicine
PROC: 3E0F73Z Introduction of Anti-inflammatory into Respiratory Tract, Via Natural or Artificial Opening (ICD-10-PCS; 2016-12-19)
PROC: 0JBN0ZZ Excision of Right Lower Leg Subcutaneous Tissue and Fascia, Open Approach (ICD-10-PCS; principal; 2016-12-20 15:45)
DX: I83.218 Varicose veins of right lower extremity with both ulcer of other part of lower extremity and inflammation (principal); L97.812 Non-pressure chronic ulcer of other part of right lower leg with fat layer exposed; Z68.41 Body mass index [BMI] 40.0-44.9, adult; B95.62 Methicillin resistant Staphylococcus aureus infection as the cause of diseases classified elsewhere; F32.9 Major depressive disorder, single episode, unspecified; I89.0 Lymphedema, not elsewhere classified; B95.4 Other streptococcus as the cause of diseases classified elsewhere; E66.01 Morbid (severe) obesity due to excess calories; I10 Essential (primary) hypertension; M19.90 Unspecified osteoarthritis, unspecified site; F17.210 Nicotine dependence, cigarettes, uncomplicated; Z83.3 Family history of diabetes mellitus; Z86.14 Personal history of Methicillin resistant Staphylococcus aureus infection; Z98.51 Tubal ligation status; Z88.0 Allergy status to penicillin
CPT/HCPCS: 00400; 36415; 80048; 80053; 80202; 82550; 82565; 83036; 83605; 83735; 85025; 85027; 85610; 85652; 86140; 87040; 87070; 87075; 87077; 87186; 87205; 88305; 93005; 93010; 96365; 96375; 99285; J1644; J1885; J1956; J2250; J2704; J2765; J3010; J3370; J3490; J7030; J7060; S0028